=== PATIENT | male | born 1975 | race Caucasian/White ===

== ENCOUNTER → 2022-09-14 | Outpatient (CLI) | payer OTHER ==
--- NOTE | 2022-09-15 06:23 | MR ---
EXAMINATION TYPE: MR shoulder LT wo con DATE OF EXAM: 09/14/2022 COMPARISON: None. HISTORY: PAIN IN LEFT SHOULDER with difficulty raising overhead since slip injury March 2022. Possible labral tear. TECHNIQUE: Multiplanar, multisequence imaging of the left shoulder is performed without contrast. FINDINGS: Rotator Cuff: Distal supraspinatus and infraspinatus tendons are intact. Subscapularis tendon intact. Rotator cuff muscle bulk preserved. Acromioclavicular Joint: Acromioclavicular joint shows mild narrowing in superior capsular hypertroph y. Underlying fat plane is maintained. Distal acromion morphology unremarkable. Glenohumeral Joint: Small joint effusion. No significant spurring. Labrum: Increased signal superior labrum consistent with tear runs anterior-posterior direction. Biceps Tendon: The long head of biceps is in normal location within bicipital groove. Bone marrow signal: No focal abnormal marrow signal is appreciated. Other: No additional significant abnormality is appreciated. IMPRESSION: Confirmation of superior labral SLAP type tear.
== END | disposition home or self-care (01) ==
LOC: RADMRIMAIN 07:40
PROVIDERS: ATTEND Family Medicine
DX: M75.112 Incomplete rotator cuff tear or rupture of left shoulder, not specified as traumatic (principal)